=== PATIENT | male | born 2000 | race Caucasian/White ===

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

== ENCOUNTER 2021-08-14 10:04 | Emergency (ER) | payer OTHER ==
[2021-08-14 10:16] VITALS: BP 136/78; PULSE 64; RESP 18; TEMP 98.7
[2021-08-14] MEDS ORDERED: LIDOCAINE 1% INJ 10MG/ML (5 ML VIAL-PF) SQ ONE (10:25)
[2021-08-14] MEDS ORDERED: DIPH,PERTUS(ACELL)TETVAC-LF 0.5 ML VIAL IM ONE (10:43)
--- NOTE | 2021-08-14 11:11 | ED ---
General Adult HPI - General Chief complaint: Wound/Laceration Stated complaint: lt ring finger lac Time Seen by Provider: 08/14/21 10:20 Source: patient, family, RN notes reviewed, old records reviewed Mode of arrival: ambulatory Limitations: no limitations - History of Present Illness Initial comments: 20-year-old well-appearing male presents to the emergency room with complaint of laceration to the base of his left little finger while kayaking today. -: hour(s) Location: left, upper extremity (little finger) Severity scale (1-10): 2 Consistency: constant Improves with: none Associated Symptoms: denies other symptoms Treatments Prior to Arrival: none - Related Data Allergies Allergy/AdvReac Type Severity Reaction Status Date / Time No Known Allergies Allergy Verified 08/14/21 10:16 Review of Systems ROS Statement: Those systems with pertinent positive or pertinent negative responses have been documented in the HPI. ROS Other: All systems not noted in ROS Statement are negative. Past Medical History Past Medical History: No Reported History History of Any Multi-Drug Resistant Organisms: None Reported Past Surgical History: No Surgical Hx Reported Past Psychological History: No Psychological Hx Reported Smoking Status: Vaper Past Alcohol Use History: None Reported Past Drug Use History: None Reported General Exam Limitations: no limitations General appearance: alert, in no apparent distress Head exam: Present: atraumatic Eye exam: Present: normal appearance. Absent: scleral icterus, conjunctival injection ENT exam: Present: mucous membranes moist Respiratory exam: Present: normal lung sounds bilaterally. Absent: respiratory distress, accessory muscle use Cardiovascular Exam: Present: regular rate Left Hand Wrist exam: Present: tenderness, laceration (Fifth digit palmar crease 2cm laceration) Neurological exam: Present: alert, oriented X3, normal gait Psychiatric exam: Present: normal affect, normal mood Skin exam: Present: warm, dry, normal color. Absent: cyanosis, diaphoretic Course Vital Signs 08/14/21 10:12 Temperature 98.7 F Pulse Rate 64 Respiratory 18 Rate Blood Pressure 136/78 O2 Sat by Pulse 99 Oximetry Procedures - Laceration Laceration #1 Consent Obtained: verbal consent Indication: laceration Site: other (left little finger) Size (cm): 2 Description: linear Depth: simple, single layer Anesthetic Used: lidocaine 1% Anesthesia Technique: local infiltration Amount (mls): 4 Pre-repair: irrigated extensively Type of Sutures: nylon Size of Sutures: 4-0 Number of Sutures: 3 Technique: simple, interrupted Patient Tolerated Procedure: well, no complications Medical Decision Making - Medical Decision Making Keep wound clean and dry. Apply a thin layer of bacitracin or Neosporin to sutures. Sutures to be removed in 10 days. Return to the emergency room with any other concerning symptoms including increased pain, drainage or fevers. Disposition Clinical Impression: Laceration Disposition: HOME SELF-CARE Condition: Good Instructions (If sedation given, give patient instructions): Finger Laceration (ED) Additional Instructions: Sutures to be removed in 10 days. Keep area clean and dry. Put thin layer of Neosporin and wound daily. Follow-up with the primary care doctor next week. Return to the emergency room with any new or concerning symptoms including increased redness, pain or fevers. Is patient prescribed a controlled substance at d/c from ED?: No Referrals: None,Stated [Primary Care Provider] - 1-2 days Time of Disposition: 11:11
[2021-08-14] MEDS ORDERED: BACITRACIN OINT 1 EACH PACKET TOPICAL ONE (11:12)
== END 2021-08-14 11:24 | disposition home or self-care (01) ==
LOC: EC 10:04
DX: S61.214A Laceration without foreign body of right ring finger without damage to nail, initial encounter (principal); F17.200 Nicotine dependence, unspecified, uncomplicated; Z23 Encounter for immunization; V93.35XA Fall on board canoe or kayak, initial encounter; Y93.16 Activity, rowing, canoeing, kayaking, rafting and tubing
CPT/HCPCS: 90715; 12001; 99282; 90471; J2001